=== PATIENT | male | born 1950 | race Hispanic/Latino ===

== ENCOUNTER 2017-12-04 09:23 | Outpatient (CLI) | payer MEDICARE | END 2017-12-04 09:24 | disposition home or self-care (01) | LOC: BICULT 09:23 | PROVIDERS: ATTEND Family Medicine | DX: I10 Essential (primary) hypertension (principal); K76.0 Fatty (change of) liver, not elsewhere classified; K82.9 Disease of gallbladder, unspecified | CPT/HCPCS: 76700 ==

== ENCOUNTER 2019-09-08 09:39 | Outpatient (CLI) | payer MEDICARE ==
--- NOTE | 2019-09-08 09:58 | RAD ---
EXAM: Chest 2 views: HISTORY: Abnormal findings in lung field COMPARISON: 12/08/2017 FINDINGS: There is a normal-sized cardiomediastinal silhouette. Atherosclerotic calcifications are seen in the aorta. There is no evidence of consolidation, mass, or pleural effusion. The bones are unremarkable. IMPRESSION: No evidence of acute cardiopulmonary disease
--- NOTE | 2019-09-08 10:58 | ULT ---
EXAM: US Abdominal CLINICAL HISTORY: Abdominal pain. COMPARISON: None. FINDINGS: Pancreas: Obscured by bowel gas IVC: Visualized IVC has a normal caliber. Aorta: Visualized aorta has a normal caliber. Liver:Increased density of the hepatic parenchyma which may be due to hepatic steatosis or hepatocell ular disease. Limited evaluation for hepatic masses and intrahepatic biliary dilatation. The contour of the hepatic margin is maintained. Right hepatic lobe measures 17.5 cm Gallbladder: No sonographic evidence of cholelithiasis, gallbladder wall thickening or pericholecysti c fluid. Rock's sign:Negative CBD: 0.53 cm common bile duct diameter Portal vein: Patent. Appropriate directional flow. Right kidney: Normal cortical echotexture. No hydronephrosis. Right kidney measuring 5.6 x 4.9 x 10. 9 cm in length. Small 0.6 cm exophytic hypoechoic focus cannot be further characterize. Left kidney: Normal cortical echotexture. No hydronephrosis . Left kidney measuring 5.2 x 12.6 x 5.0 cm in length Spleen: Normal echotexture, measuring 10.6 cm in length IMPRESSION: 1. Heterogeneous echotexture of liver which may be due to hepatic steatosis or hepatocellular disease . If there is concern for hepatic masses, consider MRI. 2. Exophytic hypoechoic focus of the right kidney which is too small to further characterize.
--- NOTE | 2019-09-08 11:37 | RAD ---
LUMBAR SPINE 3 VIEWS: HISTORY: Pain, abnormal finding. FINDINGS: Generalized disk-osteophytosis and facet arthrosis. No acute fracture or dislocation. No significan t malalignment. IMPRESSION: Lumbar spondylosis without other acute process. POS: [facility]
== END 2019-09-08 09:40 | disposition home or self-care (01) ==
LOC: RAD 09:39 → BICULT 09:40
PROVIDERS: ATTEND Family Medicine
DX: R93.7 Abnormal findings on diagnostic imaging of other parts of musculoskeletal system (principal); R91.8 Other nonspecific abnormal finding of lung field; R10.9 Unspecified abdominal pain; M47.816 Spondylosis without myelopathy or radiculopathy, lumbar region; R93.2 Abnormal findings on diagnostic imaging of liver and biliary tract; R93.421 Abnormal radiologic findings on diagnostic imaging of right kidney
CPT/HCPCS: 71046; 72100; 93975

== ENCOUNTER 2022-08-28 14:57 | Outpatient (CLI) | payer OTHER | END 2022-08-28 14:58 | disposition home or self-care (01) | LOC: BICRAD 14:57 | PROVIDERS: ATTEND Nurse Practitioner Family | DX: Z09 Encounter for follow-up examination after completed treatment for conditions other than malignant neoplasm (principal); E11.9 Type 2 diabetes mellitus without complications; R94.5 Abnormal results of liver function studies; I10 Essential (primary) hypertension; E78.5 Hyperlipidemia, unspecified; N40.1 Benign prostatic hyperplasia with lower urinary tract symptoms; R35.1 Nocturia; Z23 Encounter for immunization | CPT/HCPCS: 71046 ==

== ENCOUNTER 2023-11-06 08:51 | Outpatient (CLI) | payer OTHER | END 2023-11-06 08:52 | disposition home or self-care (01) | LOC: BICULT 08:51 | PROVIDERS: ATTEND Nurse Practitioner Family | DX: R10.11 Right upper quadrant pain (principal); K76.9 Liver disease, unspecified | CPT/HCPCS: 76700 ==